=== PATIENT | male | born 1995 | race Two or more races ===

== ENCOUNTER 2023-10-13 06:23 | Emergency (ER) | payer MEDICAID ==
[~2023-10-13] VITALS: Ht 165.1 cm; Wt 102.2 kg
[2023-10-13] MEDS: TETRACAINE HCL 0.5% OPTH(EYE) SOLN 4ML LEFTEYE ONE (07:09)
[2023-10-13] MEDS: FLUORESCEIN SOD OPTH TEST STRIP OP ONE (07:09)
[2023-10-13 07:11] VITALS: BP 125/63; PULSE 74; RESP 18; TEMP 97.2; O2SAT 98
[2023-10-13] MEDS ORDERED: CIPR0.3S67 OP (07:18)
== END 2023-10-13 07:31 | disposition home or self-care (01) ==
LOC: ER 06:23
DX: T15.02XA Foreign body in cornea, left eye, initial encounter (principal); H44.792 Retained (old) intraocular foreign body, nonmagnetic, in other or multiple sites, left eye; Z79.2 Long term (current) use of antibiotics; X58.XXXA Exposure to other specified factors, initial encounter; Y93.89 Activity, other specified; Y92.89 Other specified places as the place of occurrence of the external cause; Y99.8 Other external cause status
CPT/HCPCS: 65222

== ENCOUNTER 2025-06-13 20:18 | Emergency (ER) | payer MEDICAID ==
[~2025-06-13] VITALS: Ht 165.1 cm; Wt 109.8 kg
[~2025-06-13 20:18] MED LIST: CIPR0.3S67 OP
[2025-06-13 20:21] VITALS: BP 154/101; PULSE 62; RESP 18; TEMP 98; O2SAT 98
== END 2025-06-13 21:14 | disposition left against medical advice (07) ==
LOC: ER 20:18
DX: R51.9 Headache, unspecified (principal); Z79.899 Other long term (current) drug therapy